=== PATIENT | male | born 1950 | race Caucasian/White ===

== ENCOUNTER → 2019-06-06 | Outpatient (CLI) | payer MEDICARE, OTHER | LOC: COL.RAD 15:21 | DX: J18.9 Pneumonia, unspecified organism (principal); J98.11 Atelectasis | CPT/HCPCS: Q9967 ==

== ENCOUNTER → 2019-06-06 | Outpatient (CLI) | payer MEDICARE, OTHER ==
[2019-06-06 09:32] LABS: BASO % 0.1 % (0.0-2.0); GRAN # 6.5 (1.4-6.5); GRAN % 84.4 % (42.2-75.2); HEMATOCRIT 40.5 % (42.0-52.0); HEMOGLOBIN 13.5 g/dl (13.5-18.0); LYMPH % 12.7 % (20.0-51.0); MEAN CELL VOLUME 91 fl (80.0-100.0); MEAN CORPUSCULAR HEMOGLOBIN 30 pg (27.0-31.0); MEAN CORPUSCULAR HGB CONC 33 g/dl (33.0-37.0); MEAN PLATELET VOLUME 9.7 fl (7.4-10.4); MONO # 0.2 (0.1-0.6); MONO % 2.2 % (1.7-9.3); PLATELET COUNT 149 K/mm3 (130-400); RED BLOOD COUNT 4.45 M/mm3 (4.20-5.60); REDCELL DISTRIBUTION WIDTH-CV 12.5 % (11.5-14.5)
[2019-06-06 09:42] LABS: ALBUMIN 3.6 gm/dL (3.5-5.0); BILIRUBIN,TOTAL 0.9 mg/dL (0.0-1.0); CALCIUM 8.6 mg/dL (8.4-10.2); CREATININE, serum 0.99 (0.66-1.25); POTASSIUM 3.5 mmol/L (3.4-5.0)
== END ==
LOC: COL.LAB 09:01
PROVIDERS: Family Medicine
DX: J18.9 Pneumonia, unspecified organism (principal)